=== PATIENT | female | born 1990 | race Caucasian/White ===

== ENCOUNTER 2019-11-01 00:01 | Inpatient (IN) ==
[2019-11-01] MEDS ORDERED: DEXTROSE 5%-LACTATED RINGERS 1,000 ML IV PRN (00:24)
[2019-11-01] MEDS ORDERED: ONDANSETRON 4 MG TAB.RAPDIS PO PRN (00:24)
[2019-11-01] MEDS ORDERED: RINGER'S SOLUTION,LACTATED 1,000 ML IV ONE (00:24)
[2019-11-01] MEDS ORDERED: OXYTOCIN/DEXTROSE 5%-WATER 30 UNITS/500 ML BAG IV ONE ×2 (00:24→11:05)
[2019-11-01] MEDS ORDERED: ACETAMINOPHEN 500 MG TABLET PO PRN (00:26)
[2019-11-01] MEDS ORDERED: PENICILLIN G POTASSIUM 5 MILLIONUNT in DEXTROSE 5 % IN WATER 100 ML IV ONE ×2 (01:00)
[2019-11-01] MEDS ORDERED: CALCIUM CARBONATE 500 MG TAB.CHEW PO PRN (02:21)
[2019-11-01] MEDS: PENICILLIN G POTASSIUM 2.5 MILLIONUNT in DEXTROSE 5 % IN WATER 100 ML IV SCH ×4 (04:54→09:24)
[2019-11-01] MEDS ORDERED: NALOXONE HCL 1 MG/1 ML SYRG IV PRN (08:06)
[2019-11-01] MEDS ORDERED: BUPIVACAINE HCL/0.9 % NACL/PF 250 ML EP PRN (08:06)
[2019-11-01] MEDS ORDERED: ONDANSETRON HCL/PF 2 MG/ML VIAL IV PRN (08:06)
[2019-11-01] MEDS ORDERED: BUPIVACAINE HCL/PF 30 ML VIAL EP SCH (08:15)
--- NOTE | 2019-11-01 08:17 | ANES ---
Anesthesia Pre Procedure Eval Vitals/Labs: Last Vital Signs Temp 36.5 C 11/01/19 00:10 Pulse 82 11/01/19 00:10 Resp 16 11/01/19 00:10 BP 124/67 11/01/19 00:10 Pulse Ox 99 11/01/19 00:10 HOME MEDICATIONS [id number] 400 mcg-om3 35 mg-dha 25 mg-epa 5 mg-fish oil chewable tablet 2 tab PO DAILY tab 04/24/19 [Last Taken Unknown] acetaminophen 325 mg tablet 325 mg PO Q6H PRN 07/03/19 [Last Taken Unknown] ferrous sulfate 325 mg (65 mg iron) tablet,delayed release 325 mg PO DAILY #30 tab 07/30/19 [Last Taken Unknown] breast pump See Rx Instructions .ROUTE .MEDSUPPLY #1 ea 09/11/19 [Last Taken Unknown] Allergies/Adverse Reactions: Allergies Allergy/AdvReac Type Severity Reaction Status Date / Time No Known Allergies Allergy Verified 11/01/19 03:21 - Planned Procedure Planned Procedure: Labor epidural Medication List Reviewed:: Yes Allergies Verified: Yes Medical History (Last Reviewed 11/01/19 @ 07:50 by Eufemia Cruz RN) Abnormal Pap smear of cervix Onset Date: ~05/08/15 05/08/15-ASCUS, +HR HPV, 05/09/2018 LSIL, +HRHPV Allergic rhinitis Onset Date: ~01/20/15 Irregular heartbeat Onset Date: ~07/22/14 Surgical History (Last Reviewed 11/01/19 @ 07:50 by Eufemia Cruz RN) History of appendectomy Onset Date: ~2015 Family History (Last Reviewed 11/01/19 @ 07:50 by Eufemia Cruz RN) Mother Alive and well Father Alive and well - Anesthesia Assessment and Plan ASA Class: PS, II Anesthesia Type Plan: Epidural
--- NOTE | 2019-11-01 08:57 | ANES ---
Anesthesia Procedure Note Procedure Note: ANESTHESIA PROCEDURE NOTE Date of Procedure: 11/01/2019. Time of procedure: 839. Performed by: Bang Zaidi CRNA Barrel Driller: None. Preprocedure diagnosis: Active labor. Post procedure diagnosis: Same. Procedure: Insertion of labor epidural. Indications: The patient is a 29-year-old female in active labor requesting labor epidural for pain management. Findings: See below. Details of the procedure: The patient was placed in a sitting position. DuraPrep as well as Betadine swabs X3 was applied to the patient's back. Patient was then draped in a sterile fashion. Lidocaine 1% was infiltrated to the skin and subcutaneous tissues at the level of the L3-4 interspace. The epidural space was identified using a 18-gauge Tuohy needle with [id number] technique. Epidural catheter was inserted to a depth of 10 centimeters at skin. Negative test dose was elicited using 3 mL of 1.5% preservative-free lidocaine plus epinephrine 1 200,000. The epidural catheter was then taped and secured in place. A loading dose of 8 mL of 0.25% preservative-free bupivacaine was administered to the epidural catheter after negative aspiration for blood and CSF. EBL: Minimal. Fluids: N/A. Specimen: N/A. Post procedure condition: The patient tolerated the procedure well. No complications were noted. Thank you for this consultation. Bang Zaidi CRNA
--- NOTE | 2019-11-01 08:58 | ANES ---
Post Anesthesia Assessment - Vital Signs Vitals: Last Vital Signs Temp 37.1 C 11/01/19 08:55 Pulse 91 11/01/19 08:55 Resp 20 11/01/19 08:55 BP 126/60 11/01/19 08:55 Pulse Ox 100 11/01/19 08:55 Airway Patency: Normal - Mental Status Level Of Consciousness: Awake - N/V Assessment Nausea/Vomiting Presence: None Dehydration:: No
--- NOTE | 2019-11-01 09:12 | HP ---
Chief Complaint - Chief Complaint Date of Service: 11/01/19 Time of Service: 09:09 Chief Complaint: induction of labor History of Present Illness: 29 yo at 39 3/7 weeks admitted for elective indution of labor. This preganncy without complications. Rh positive Rubella imune GBS positive by urine Medical History (Last Reviewed 11/01/19 @ 11:11 by Pola Harmon DO) Abnormal Pap smear of cervix Onset Date: ~05/08/15 05/08/15-ASCUS, +HR HPV, 05/09/2018 LSIL, +HRHPV Allergic rhinitis Onset Date: ~01/20/15 Irregular heartbeat Onset Date: ~07/22/14 Surgical History: Surgical History (Last Reviewed 11/01/19 @ 11:11 by Pola Harmon DO) History of appendectomy Onset Date: ~2015 Family History: Family History (Last Reviewed 11/01/19 @ 11:11 by Pola Harmon DO) Mother Alive and well Father Alive and well Social History: (Last Reviewed 11/01/19 @ 11:11 by Pola Harmon DO) Social History: adopted: No Marital status: Single household members: significant other, children current occupational status: employed current occupation: [employer] current occupational exposures/hazards: No Highest education level completed: 11th grade Service: No Tobacco: Smoking Status: Former smoker Alcohol: alcohol intake: current details: stopped with +UPT Substance Use: substance use type: does not use Dietary Habits: caffeine: Yes caffeine comment: occasionally Pets: pets and animals: cat(s), dog(s) Review Of Systems (GEN) - Review of Systems Generalized/Overall Review: Present: No Symptoms Reported EENTM: Present: No Symptoms Reported Respiratory: Present: No Symptoms Reported Cardiac: Present: No Symptoms Reported Abdominal: Present: No Symptoms Reported Genitourinary: Present: No Symptoms Reported Musculoskeletal: Present: No Symptoms Reported Neurological: Present: No Symptoms Reported Skin: Present: No Symptoms Reported Endocrine: Present: No Symptoms Reported Immunizations: IMMUNIZATION HX Immunizations Up to Date Yes History of Influenza Vaccine No Allergies/Adverse Reactions: Allergies Allergy/AdvReac Type Severity Reaction Status Date / Time No Known Allergies Allergy Verified 11/01/19 03:21 Home Medications: HOME MEDICATIONS [id number] 400 mcg-om3 35 mg-dha 25 mg-epa 5 mg-fish oil chewable tablet 2 tab PO DAILY tab 04/24/19 [Last Taken Unknown] acetaminophen 325 mg tablet 325 mg PO Q6H PRN 07/03/19 [Last Taken Unknown] ferrous sulfate 325 mg (65 mg iron) tablet,delayed release 325 mg PO DAILY #30 tab 07/30/19 [Last Taken Unknown] breast pump See Rx Instructions .ROUTE .MEDSUPPLY #1 ea 09/11/19 [Last Taken Unknown] Exam - Exam Vital Signs: Vital Signs - Last Taken Temp 37.1 C 11/01/19 08:55 Pulse 91 11/01/19 08:55 Resp 20 11/01/19 08:55 BP 126/60 11/01/19 08:55 Pulse Ox 100 11/01/19 08:55 Constitutional: Present: Alert, Oriented x3, Cooperative, No distress ENT Exam: Present: hearing grossly normal Neck: Absent: thyromegaly Breasts: Present: Exam deferred Respiratory: Present: lungs clear, no respiratory distress Cardiovascular/Chest: Present: regular rate, rhythm, no edema Abdomen: Present: soft, nontender, other - gravid /Rectal: Present: Other - cervix 1-2/50/-3 on admission Extremity: Present: no pedal edema, no calf tenderness Skin Exam: Present: normal color, warm/dry, no cyanosis Lymphatic: Present: no adenopathy Neurologic: Present: alert, oriented x 3 Appearance: Present: appropriate appearance, appropriate insight Eye contact: Present: cooperative, avoids eye contact Thoughts: Present: other - tearful/emotional Assessment/Plan - Assessment/Plan (1) Elective induction of labor planned Assessment: Admit for pitocin induction of labor. Epidural PRN Problem: Acute (2) Anemia Problem: Acute Qualifiers: Anemia type: iron deficiency Iron deficiency anemia type: inadequate dietary iron intake Qualified Code(s): D50.8 - Other iron deficiency anemias
--- NOTE | 2019-11-01 09:14 | PN ---
Progess Note - Interim Date: 11/01/19 Time: 08:30 Narrative: 11/01/19 09:12 Patient requesting epidural Vital signs stable. Pitocin at 10 mu/min. FHT: 150 baseline, reassuring contractions q 2-3 min Cervix: 4/60/-2, AROM-clear Impression: Intrauterine at 39-3/7 weeks induction of labor. GBS positive-status post 5 doses of saline. Plan: Continue present plan. Anesthesia consulted for epidural placement.
--- NOTE | 2019-11-01 11:02 | OR ---
Operative Report - Dictated Report Narrative: Spontaneous vaginal delivery of vigorously crying viable male at 1042 on 11/01/2019 with Apgars 9 and 9, weighing 3172 g in OA presentation. Cord clamping delayed approximately 1 minute Placenta delivered complete, intact, with three vessel cord Estimated blood loss: Less than 50 ml Anesthesia: Epidural Lacerations: Bilateral periurethral abrasion with no repair necessary. History for MU History for Definition: * The number of deliveries resulting in a live the patient experienced prior to current hospitalization * The previous delivery of live twins or any live multiple gestation is considered one live event. *If primagravida or nulliparous is documented select zero for the number of previous live births. Live Events: Live Events: 3
[2019-11-01] MEDS ORDERED: BENZOCAINE/MENTHOL 81 SPRAY CAN TP PRN (11:05)
[2019-11-01] MEDS ORDERED: HYDROCORTISONE 30 APPL TUBE TP PRN (11:05)
[2019-11-01] MEDS ORDERED: BISACODYL 10 MG SUPP.RECT RC PRN (11:05)
[2019-11-01] MEDS ORDERED: IBUPROFEN 800 MG TABLET PO PRN (11:05)
[2019-11-01] MEDS ORDERED: SENNOSIDES 8.6 MG TABLET PO PRN (11:05)
[2019-11-01] MEDS ORDERED: GLYCERIN/WITCH HAZEL LEAF 40 APPL BOX TP PRN (11:05)
[2019-11-01] MEDS ORDERED: ACETAMINOPHEN 325 MG TABLET PO PRN (11:06)
[2019-11-01] MEDS ORDERED: NON-FORMULARY 1 DOSE DOSE (Breast Pump 0 UNIT) SCH (11:15)
[2019-11-01] MEDS: oxyCODONE HCL/ACETAMINOPHEN 1 TAB TABLET PO PRN ×3 (14:56→22:53)
[2019-11-01] MEDS: IBUPROFEN 800 MG TABLET PO PRN ×2 (14:57→21:50)
[2019-11-01] MEDS: DOCUSATE SODIUM 100 MG CAPSULE PO SCH (21:49)
[2019-11-02] MEDS: oxyCODONE HCL/ACETAMINOPHEN 1 TAB TABLET PO PRN ×2 (02:50→06:38)
[2019-11-02] MEDS: IBUPROFEN 800 MG TABLET PO PRN (06:39)
[2019-11-02] MEDS: DOCUSATE SODIUM 100 MG CAPSULE PO SCH ×2 (06:39→08:48)
[2019-11-02 07:35] VITALS: BP 112/73
[2019-11-02] MEDS ORDERED: PRENATAL VITS96/IRON FUM/FOLIC 1 TAB TABLET PO SCH (09:00)
[2019-11-02] MEDS ORDERED: FERROUS SULFATE 325 MG TABLET PO SCH (09:00)
--- NOTE | 2019-11-02 10:18 | PN ---
Subjective - Date and Time Seen Date: 11/02/19 Time: 10:17 Objective - Vitals Vitals: Last Vital Signs Temp 36.7 C 11/02/19 07:34 Pulse 91 11/02/19 07:34 Resp 18 11/02/19 07:34 BP 112/73 11/02/19 07:34 Pulse Ox 100 11/02/19 07:34 Patient denies complaints. Lochia wnl abdomen - soft, nontender Uterus -firm, at umbilicus - 1 no calf tenderness Impression: day #1 - s/p spontaneous vaginal delivery. Patient desires early discharge Plan: Continue routine care. Routine discharge instructions given. Cauti Physician Documentation - Urinary Catheter Management Urethral ([place]) Date of Insertion: 11/01/19 Time of Insertion: 09:05 Date of Removal: 11/01/19 Time of Removal: 10:37 Assessment/Plan - Problems/Diagnosis (1) Elective induction of labor planned Problem: Acute (2) Anemia Problem: Acute Qualifiers: Anemia type: iron deficiency Iron deficiency anemia type: inadequate dietary iron intake Qualified Code(s): D50.8 - Other iron deficiency anemias
== END 2019-11-02 14:00 | disposition home or self-care (01) | DRG 807 ==
LOC: OB 00:01
PROVIDERS: ADMIT Obstetrics & Gynecology; ATTEND Obstetrics & Gynecology
CPT/HCPCS: 59025